=== PATIENT | male | born 1995 | race Caucasian/White ===

== ENCOUNTER 2023-03-26 04:20 | Emergency (ER) | payer OTHER ==
[~2023-03-26] VITALS: Ht 167.6 cm; Wt 59.0 kg
[2023-03-26 04:38] VITALS: TEMP 98
[2023-03-26] MEDS ORDERED: NAPR-1009 PO (05:58)
[2023-03-26] MEDS ORDERED: HYDROCODONE/APAP 5/325MG TABLET ONE (05:59)
[2023-03-26] MEDS ORDERED: HYDROCODONE/APAP 5/325MG TABLET PO ONE (06:00)
[2023-03-26 06:48] VITALS: BP 119/77; O2SAT 98
== END 2023-03-26 06:49 | disposition home or self-care (01) ==
LOC: ER 04:31
DX: S92.352A Displaced fracture of fifth metatarsal bone, left foot, initial encounter for closed fracture (principal); X58.XXXA Exposure to other specified factors, initial encounter; Y93.89 Activity, other specified; Y92.89 Other specified places as the place of occurrence of the external cause; Y99.8 Other external cause status
CPT/HCPCS: 73610-TC